=== PATIENT | female | born 1980 | race Caucasian/White ===

== ENCOUNTER 2020-08-10 20:54 | Emergency (ER) | payer SELFPAY ==
[~2020-08-10] VITALS: Ht 167.6 cm; Wt 113.8 kg
[2020-08-10 21:03] VITALS: BP 188/117
--- NOTE | 2020-08-10 23:21 | NUR ---
ERMD AT BEDSIDE FOR EVALUATION.
[2020-08-10] MEDS ORDERED: COLCHICINE 0.6 MG CAPSULE ONE (23:27)
[2020-08-10] MEDS ORDERED: INDOMETHACIN 50 MG CAPSULE PO ONE (23:30)
[2020-08-10] MEDS ORDERED: COLCHICINE 0.6 MG CAPSULE PO ONE (23:30)
--- NOTE | 2020-08-10 23:37 | NUR ---
INDOMETHACIN NOT IN OMNICELL, REQUESTED MEDICATION FROM PHARMACY.
--- NOTE | 2020-08-10 23:57 | NUR ---
Patient given discharge instructions and prescription and they have confirmed that they understand the instructions. Patient stable and ambulatory with steady gait from ED with significant other.
== END 2020-08-10 23:58 | disposition home or self-care (01) ==
LOC: ED 23:14
DX: M10.072 Idiopathic gout, left ankle and foot (principal); M79.89 Other specified soft tissue disorders; I10 Essential (primary) hypertension; E11.9 Type 2 diabetes mellitus without complications
CPT/HCPCS: 36415; 84550; 99284